=== PATIENT | male | born 1980 | race Caucasian/White ===

== ENCOUNTER 2017-08-23 09:08 | Inpatient (IN) | payer OTHER ==
[2017-08-23 09:42] VITALS: BMI 30.5
--- NOTE | 2017-08-23 09:48 | HP ---
CIWA Score - CIWA Score Nausea/Vomitin-Mild Nausea/No Vomiting Muscle Tremors: 4-Moderate,w/Arms Extend Anxiety: 4-Mod. Anxious/Guarded Agitation: 1-Slight > Activity Paroxysmal Sweats: No Perspiration Orientation: 0-Oriented Tacttile Disturbances: 1-Very Mild Itch/Numbness Auditory Disturbances: 1-Very Mild Visual Disturbances: 1-Very Mild Sensitivity Headache: 1-Very Mild CIWA-Ar Total Score: 14 Admission ROS BHS - HPI Chief Complaint: I need an operation, I want to get clean Allergies/Adverse Reactions: Allergies Allergy/AdvReac Type Severity Reaction Status Date / Time No Known Allergies Allergy Verified 08/23/17 10:38 History of Present Illness: 37 yo gentleman here for detox from alcohol - last in detox here 08/31/16 - no seizures. States he has chronic left knee pain due to past injury and needs surgery - was on percocet and opana but none for two months due to transportation problems. Exam Limitations: Clinical Condition - Ebola screening Have you traveled outside of the country in the last 21 days: No Have you had contact with anyone from an Ebola affected area: No Have you been sick,other than usual withdrawal symptoms: No Do you have a fever: No - Review of Systems Constitutional: Loss of Appetite, Changes in sleep, Weakness EENT: reports: Blurred Vision Respiratory: reports: No Symptoms reported Cardiac: reports: No Symptoms Reported GI: reports: Poor Appetite : reports: Frequency Musculoskeletal: reports: Joint Pain Integumentary: reports: No Symptoms Reported Neuro: reports: Headache Endocrine: reports: No Symptoms Reported Hematology: reports: No Symptoms Reported Psychiatric: reports: Judgement Intact, Mood/Affect Appropiate, Orientated x3, Anxious Other Systems: Reviewed and Negative Patient History - Patient Medical History Hx Anemia: No Hx Asthma: No Hx Chronic Obstructive Pulmonary Disease (COPD): No Hx Cancer: No Hx Cardiac Disorders: No Hx Congestive Heart Failure: No Hx Hypertension: Yes (poor adherence to meds) Hx Hypercholesterolemia: No Hx Pacemaker: No HX Cerebrovascular Accident: No Hx Seizures: No Hx Dementia: No Hx Diabetes: No Hx Gastrointestinal Disorders: No Hx Liver Disease: Yes (fatty liver) Hx Genitourinary Disorders: No Hx Sexually Transmitted Disorders: No Hx Renal Disease (ESRD): No Hx Thyroid Disease: No Hx Human Immunodeficiency Virus (HIV): No Hx Hepatitis C: No Hx Depression: Yes (history of meds,) Hx Suicide Attempt: No Hx Bipolar Disorder: No Hx Schizophrenia: No - Patient Surgical History Past Surgical History: Yes Hx Neurologic Surgery: No Hx Cataract Extraction: No Hx Cardiac Surgery: No Hx Lung Surgery: No Hx Breast Surgery: No Hx Breast Biopsy: No Hx Abdominal Surgery: No Hx Appendectomy: Yes (2012) Hx Cholecystectomy: Yes (2014) Hx Genitourinary Surgery: No Hx Section: No Hx Orthopedic Surgery: Yes (torn ligament repair LT. KNEE 2005) Anesthesia Reaction: No - PPD History Previous Implant?: Yes Documented Results: Negative w/proof Date: 09/03/16 PPD to be Administered?: No - Reproductive History Patient is a Female of Child Bearing Age (11 -55 yrs old): No (male) - Smoking Cessation Smoking history: Current every day smoker Have you smoked in the past 12 months: Yes Aproximately how many cigarettes per day: 20 Initiated information on smoking cessation: Yes 'Breaking Loose' booklet given: 08/23/17 (give on floor) - Substance & Tx. History Hx Alcohol Use: Yes Hx Substance Use: No Substance Use Type: Alcohol Hx Substance Use Treatment: Yes (detox, rehab) - Substances Abused Alcohol Route: Oral Frequency: Daily Amount used: two 24 oz beers; 1/2 pint Age of first use: 13 Date of Last Use: 08/23/17 Family Disease History - Family Disease History Family Disease History: Other: Father (, ALCOHOL), Mother (), Brother (three living - healthy), Sister (four living - healthy), Daughter (two - ages 18, 16) [facility] - Vital Signs Vital Signs: Vital Signs - 24 hr 08/23/17 09:40 Temperature 97.1 F L Pulse Rate 106 H Respiratory 20 Rate Blood Pressure 154/99 - Physical General Appearance: Yes: Nourished, Appropriately Dressed, Moderate Distress, Tremorous, Anxious HEENTM: Yes: EOMI, Hearing grossly Normal, Normocephalic, Normal Voice, Pharynx Normal Respiratory: Yes: Normal Breath Sounds, No Respiratory Distress Neck: Yes: No masses,lesions,Nodules, Supple Breast: Yes: Breast Exam Deferred Cardiology: Yes: Regular Rhythm, Regular Rate Abdominal: Yes: Soft Genitourinary: Yes: Frequency Back: Yes: Normal Inspection Musculoskeletal: Yes: Gait Steady, Joint Stiffness (left knee with hypertrophic changes) Extremities: Yes: Normal Inspection, Non-Tender Neurological: Yes: Fully Oriented, Alert, Normal Mood/Affect, Normal Response Integumentary: Yes: Normal Color, Warm Lymphatic: Yes: Within Normal Limits - Diagnostic (1) Alcohol dependence with uncomplicated withdrawal Current Visit: Yes Status: Chronic (2) Chronic pain of left knee Current Visit: Yes Status: Chronic (3) HTN (hypertension) Current Visit: Yes Status: Chronic Qualifiers: Hypertension type: essential hypertension Qualified Code(s): I10 - Essential (primary) hypertension Cleared for Admission [facility] - [facility]ox or [facility]hab [facility] Level of Care: Medically Managed Detox Regimen/Protocol: Librium [facility] Breath Alcohol Content Breath Alcohol Content: 0.191 Urine Drug Screen - Results Drug Screen Negative: No Urine Drug Screen Results: BZO-Benzodiazepines
[2017-08-23] MEDS ORDERED: MENTHOL/PHENOL 1 EACH UD MM PRN (10:03)
[2017-08-23] MEDS ORDERED: MAG HYDROX/AL HYDROX/SIMETH 30 ML UNIT-DOSE CUP PO PRN (10:03)
[2017-08-23] MEDS ORDERED: IBUPROFEN 400 MG TABLET (FP) PO PRN (10:03)
[2017-08-23] MEDS ORDERED: chlordiazePOXIDE HCL 25 MG CAPSULE PO PRN (10:03)
[2017-08-23] MEDS ORDERED: MAGNESIUM HYDROX 2400MG/30ML ORAL SUSPENSION 30 ML CUP PO PRN (10:03)
[2017-08-23] MEDS ORDERED: NICOTINE POLACRILEX 4 MG GUM BUC PRN (10:03)
[2017-08-23] MEDS ORDERED: LOPERAMIDE HCL 2 MG CAPSULE PO PRN (10:03)
[2017-08-23] MEDS ORDERED: ACETAMINOPHEN 325 MG TABLET (FP) PO PRN (10:03)
[2017-08-23] MEDS ORDERED: MAGNESIUM CITRATE 300 ML BOTTLE PO PRN (10:03)
[2017-08-23] MEDS ORDERED: guaiFENesin/D-METHORPHAN HB 10 ML UNIT-DOSE CUPS PO PRN (10:03)
[2017-08-23] MEDS ORDERED: diphenhydrAMINE HCL 50 MG CAPSULE PO PRN (10:03)
[2017-08-23] MEDS ORDERED: P-EPHED 60MG/TRIPROLIDI 2.5MG TABLET PO PRN (10:03)
[2017-08-23] MEDS ORDERED: hydrOXYzine PAMOATE 25 MG CAPSULE (FP) PO PRN (10:03)
[2017-08-23] MEDS ORDERED: chlordiazePOXIDE HCL 25 MG CAPSULE PO ONE (11:30)
[2017-08-23] MEDS: chlordiazePOXIDE HCL 25 MG CAPSULE PO SCH ×2 (17:26→22:26)
[2017-08-23] MEDS: THIAMINE HCL 100 MG TABLET (FP) PO SCH (22:26)
[2017-08-23] MEDS: METOPROLOL TARTRATE 25 MG TABLET (FP) PO SCH (22:26)
[2017-08-24] MEDS: chlordiazePOXIDE HCL 25 MG CAPSULE PO SCH ×4 (05:25→22:02)
[2017-08-24 07:35] LABS: URINE APPEARANCE CLEAR; URINE BILIRUBIN NEGATIVE (NEGATIVE); URINE BLOOD NEGATIVE (NEGATIVE); URINE COLOR AMBER; URINE GLUCOSE (UA) NEGATIVE (NEGATIVE); URINE KETONE NEGATIVE (NEGATIVE); URINE LEUK ESTERASE NEGATIVE (NEGATIVE); URINE NITRITE NEGATIVE (NEGATIVE); URINE PROTEIN NEGATIVE (NEGATIVE); URINE UROBILINOGEN 4.0 E.U/dl mg/dL (0.2-1.0)
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
--- NOTE | 2017-08-24 09:59 | EKG ---
Test Reason : Blood Pressure : / mmHG Vent. Rate : 092 BPM Atrial Rate : 092 BPM P-R Int : 164 ms QRS Dur : 112 ms QT Int : 400 ms P-R-T Axes : 055 011 022 degrees QTc Int : 494 ms NORMAL SINUS RHYTHM POSSIBLE INFERIOR INFARCT , AGE UNDETERMINED ABNORMAL ECG NO PREVIOUS ECGS AVAILABLE Confirmed by LOWELL COLLINS MD ([id number]) on 08/24/2017 9:59:28 AM Referred By: Confirmed By:LOWELL COLLINS MD
[2017-08-24 10:02] LABS: MCH 36.8 pg (25.7-33.7); MCHC 34.7 g/dl (32.0-35.9); MEAN CELL VOLUME 106.1 fl (80-96); MEAN PLT VOLUME 9.5 fl (7.5-11.1); PLATELET COUNT 72 K/MM3 (134-434); RDW 15.6 % (11.9-15.9); WHITE BLOOD COUNT 2.7 K/mm3 (4.0-10.0)
[2017-08-24] MEDS: METOPROLOL TARTRATE 25 MG TABLET (FP) PO SCH ×2 (10:11→22:02)
[2017-08-24] MEDS: PRENATAL VITAMINS W/ FOLIC ACID TABLET (FP) PO SCH (10:11)
[2017-08-24 10:37] LABS: ALBUMIN 2.5 g/dl (3.4-5.0); ALK PHOS 186 U/L (45-117); ANION GAP 5 (8-16); BILIRUBIN,TOTAL 5.2 mg/dL (0.2-1.0); CALCIUM 8.2 mg/dL (8.5-10.1); CO2 30 mmol/L (21-32); CREATININE 0.6 mg/dL (0.7-1.3); GLUCOSE,RANDOM 105 mg/dL (74-106); SGOT/AST 80 U/L (15-37); SGPT/ALT 39 U/L (12-78)
[2017-08-24 11:26] LABS: HIV 1 & 2 AB NEGATIVE; HIV 1 AGp24 NEGATIVE
[2017-08-24] MEDS ORDERED: POTASSIUM CHLORIDE TABS 20 MEQ TABLET.ER (FP) PO ONE ×2 (11:45→16:00)
[2017-08-24] MEDS ORDERED: FLU VACCINE QUAD 60 MCG/0.5 ML (MDV 17-18) IM ONE (12:00)
--- NOTE | 2017-08-24 15:38 | PN ---
S CIWA - CIWA Score Nausea/Vomitin-No Nausea/No Vomiting Muscle Tremors: 4-Moderate,w/Arms Extend Anxiety: 4-Mod. Anxious/Guarded Agitation: 4-Moderately Restless Paroxysmal Sweats: 3 Orientation: 0-Oriented Tacttile Disturbances: 1-Very Mild Itch/Numbness Auditory Disturbances: 0-None Visual Disturbances: 0-None Headache: 2-Mild CIWA-Ar Total Score: 18 S Progress Note (SOAP) Subjective: Sweating, chills, tremor, anxious, restless, tactile disturbance (tingling), interrupted sleep Objective: 08/24/17 15:33 Last Vital Signs Temp Pulse Resp BP Pulse Ox 96.2 F L 61 16 148/91 08/24/17 09:53 08/24/17 14:43 08/24/17 14:43 08/24/17 14:43 b/p elevated: 148/91 (on meds) Laboratory Tests 08/23/17 08/24/17 08/24/17 21:35 08:00 08:00 WBC 2.7 L D RBC 3.04 L D Hgb 11.2 L D Hct 32.2 L D MCV 106.1 H MCH 36.8 H MCHC 34.7 RDW 15.6 D Plt Count 72 L D MPV 9.5 Sodium 140 Potassium 2.8 L* Chloride 105 Carbon Dioxide 30 Anion Gap 5 L BUN 5 L D Creatinine 0.6 L Creat Clearance w eGFR > 60 Random Glucose 105 Calcium 8.2 L Total Bilirubin 5.2 H AST 80 H ALT 39 D Alkaline Phosphatase 186 H Total Protein 6.0 L D Albumin 2.5 L Urine Color Taty Urine Appearance Clear Urine pH 7.0 Ur Specific [place] 1.015 Urine Protein Negative Urine Glucose (UA) Negative Urine Ketones Negative Urine Blood Negative Urine Nitrite Negative Urine Bilirubin Negative Urine Urobilinogen 4.0 e.u/dl RPR Titer HIV 1&2 Antibody Screen HIV P24 Antigen 08/24/17 08/24/17 08:00 08:00 WBC RBC Hgb Hct MCV MCH MCHC RDW Plt Count MPV Sodium Potassium Chloride Carbon Dioxide Anion Gap BUN Creatinine Creat Clearance w eGFR Random Glucose Calcium Total Bilirubin AST ALT Alkaline Phosphatase Total Protein Albumin Urine Color Urine Appearance Urine pH Ur Specific [place] Urine Protein Urine Glucose (UA) Urine Ketones Urine Blood Urine Nitrite Urine Bilirubin Urine Urobilinogen RPR Titer Nonreactive HIV 1&2 Antibody Screen Negative HIV P24 Antigen Negative Labs noted: K 2.8; noted with pancytopenia Assessment: 08/24/17 15:34 Withdrawal symptoms Uncontrolled HTN noted Noted with Hypokalemia Noted with pancytopenia Plan: Continue detox, encouraged to drink lots of water HTN, uncontrolled: continue present regimen, low Na diet, continue to monitor Hypokalemia, acute: asymptomatic, start K Dur 40Meq x 2 doses (at least 4 hours apart) then 20meq PO daily starting tomorrow, repeat BMP in AM Pancytopenia: monitor for bruising/bleeding, encourage good hand washing with soap and water, follow up with your PCP/[facility] Delivery [facility]er post discharge for further monitoring/management
[2017-08-24] MEDS: THIAMINE HCL 100 MG TABLET (FP) PO SCH (22:02)
[2017-08-24] MEDS: ZOLPIDEM TARTRATE 5 MG TABLET PO PRN (22:03)
[2017-08-25] MEDS: chlordiazePOXIDE HCL 25 MG CAPSULE PO SCH ×2 (05:40→10:12)
[2017-08-25] MEDS ORDERED: POTASSIUM CHLORIDE TABS 20 MEQ TABLET.ER (FP) PO SCH (10:00)
[2017-08-25] MEDS: PRENATAL VITAMINS W/ FOLIC ACID TABLET (FP) PO SCH (10:12)
[2017-08-25] MEDS: METOPROLOL TARTRATE 25 MG TABLET (FP) PO SCH ×2 (10:12→22:06)
[2017-08-25 10:19] LABS: ANION GAP 4 (8-16); CALCIUM 8.4 mg/dL (8.5-10.1); CO2 28 mmol/L (21-32); CREATININE 0.6 mg/dL (0.7-1.3); GLUCOSE,RANDOM 100 mg/dL (74-106)
--- NOTE | 2017-08-25 10:58 | PN ---
S CIWA - CIWA Score Nausea/Vomitin Muscle Tremors: 4-Moderate,w/Arms Extend Anxiety: 4-Mod. Anxious/Guarded Agitation: 4-Moderately Restless Paroxysmal Sweats: 3 Orientation: 0-Oriented Tacttile Disturbances: 1-Very Mild Itch/Numbness Auditory Disturbances: 0-None Visual Disturbances: 0-None Headache: 1-Very Mild CIWA-Ar Total Score: 20 BHS Progress Note (SOAP) Subjective: [place], sweats, interrutped sleep, anxiety, tremors, weakness, fatigue Objective: 08/25/17 10:57 Vital Signs - 24 hr 08/24/17 08/24/17 08/24/17 14:43 17:26 21:57 Temperature 97.0 F L 96.6 F L Pulse Rate 61 68 89 Respiratory 16 18 18 Rate Blood Pressure 148/91 134/87 126/68 08/25/17 08/25/17 08/25/17 00:30 03:30 06:20 Temperature 97.0 F L Pulse Rate 69 Respiratory 18 20 18 Rate Blood Pressure 126/89 08/25/17 08:59 Temperature 95.6 F L Pulse Rate 72 Respiratory 18 Rate Blood Pressure 135/95 Laboratory Tests 08/23/17 08/24/17 08/24/17 21:35 08:00 08:00 WBC 2.7 L D RBC 3.04 L D Hgb 11.2 L D Hct 32.2 L D MCV 106.1 H MCH 36.8 H MCHC 34.7 RDW 15.6 D Plt Count 72 L D MPV 9.5 Sodium 140 Potassium 2.8 L* Chloride 105 Carbon Dioxide 30 Anion Gap 5 L BUN 5 L D Creatinine 0.6 L Creat Clearance w eGFR > 60 Random Glucose 105 Calcium 8.2 L Total Bilirubin 5.2 H AST 80 H ALT 39 D Alkaline Phosphatase 186 H Total Protein 6.0 L D Albumin 2.5 L Urine Color Taty Urine Appearance Clear Urine pH 7.0 Ur Specific [place] 1.015 Urine Protein Negative Urine Glucose (UA) Negative Urine Ketones Negative Urine Blood Negative Urine Nitrite Negative Urine Bilirubin Negative Urine Urobilinogen 4.0 e.u/dl RPR Titer HIV 1&2 Antibody Screen HIV P24 Antigen 08/24/17 08/24/17 08/25/17 08:00 08:00 07:30 WBC RBC Hgb Hct MCV MCH MCHC RDW Plt Count MPV Sodium 142 Potassium 3.7 D Chloride 110 H Carbon Dioxide 28 Anion Gap 4 L BUN 5 L Creatinine 0.6 L Creat Clearance w eGFR Random Glucose 100 Calcium 8.4 L Total Bilirubin AST ALT Alkaline Phosphatase Total Protein Albumin Urine Color Urine Appearance Urine pH Ur Specific [place] Urine Protein Urine Glucose (UA) Urine Ketones Urine Blood Urine Nitrite Urine Bilirubin Urine Urobilinogen RPR Titer Nonreactive HIV 1&2 Antibody Screen Negative HIV P24 Antigen Negative Assessment: 08/25/17 10:58 withdrawal sx, hypokalemai, corrected Plan: cont detox,cont k supplementation, fluids, encourage ambulation, symptomatic relief of withdrawal as ordered and requested by patient
[2017-08-25] MEDS: POTASSIUM CHLORIDE ORAL LIQUID 20 MEQ/15 ML PO SCH ×2 (11:58→22:05)
[2017-08-25] MEDS ORDERED: POTASSIUM CHLORIDE ORAL LIQUID 20 MEQ/15 ML PO ONE (13:00)
[2017-08-25] MEDS: chlordiazePOXIDE 5 MG CAPSULE PO SCH ×2 (17:29→22:06)
[2017-08-25] MEDS: ZOLPIDEM TARTRATE 5 MG TABLET PO PRN (22:06)
[2017-08-25] MEDS: THIAMINE HCL 100 MG TABLET (FP) PO SCH (22:06)
[2017-08-26] MEDS: chlordiazePOXIDE 5 MG CAPSULE PO SCH ×2 (05:45→10:14)
[2017-08-26] MEDS: PRENATAL VITAMINS W/ FOLIC ACID TABLET (FP) PO SCH (10:14)
[2017-08-26] MEDS: METOPROLOL TARTRATE 25 MG TABLET (FP) PO SCH ×2 (10:14→22:03)
[2017-08-26] MEDS: POTASSIUM CHLORIDE ORAL LIQUID 20 MEQ/15 ML PO SCH ×2 (10:15→22:02)
--- NOTE | 2017-08-26 11:42 | PN ---
BHS Progress Note (SOAP) Subjective: Anxious, Tremors, Body Aches. Objective: PT. A & O X 3, OBSERVED AMBULATING ON UNIT. NO ACUTE DISTRESS. PT. DENIES CHEST PAIN. 08/26/17 11:41 Vital Signs Temperature 97.3 F L 08/26/17 09:21 Pulse Rate 74 08/26/17 09:21 Respiratory Rate 18 08/26/17 09:21 Blood Pressure 131/80 08/26/17 09:21 O2 Sat by Pulse Oximetry (%) Laboratory Tests 08/23/17 08/24/17 08/24/17 21:35 08:00 08:00 WBC 2.7 L D RBC 3.04 L D Hgb 11.2 L D Hct 32.2 L D MCV 106.1 H MCH 36.8 H MCHC 34.7 RDW 15.6 D Plt Count 72 L D MPV 9.5 Sodium 140 Potassium 2.8 L* Chloride 105 Carbon Dioxide 30 Anion Gap 5 L BUN 5 L D Creatinine 0.6 L Creat Clearance w eGFR > 60 Random Glucose 105 Calcium 8.2 L Total Bilirubin 5.2 H AST 80 H ALT 39 D Alkaline Phosphatase 186 H Total Protein 6.0 L D Albumin 2.5 L Urine Color Taty Urine Appearance Clear Urine pH 7.0 Ur Specific [place] 1.015 Urine Protein Negative Urine Glucose (UA) Negative Urine Ketones Negative Urine Blood Negative Urine Nitrite Negative Urine Bilirubin Negative Urine Urobilinogen 4.0 e.u/dl RPR Titer HIV 1&2 Antibody Screen HIV P24 Antigen 08/24/17 08/24/17 08/25/17 08:00 08:00 07:30 WBC RBC Hgb Hct MCV MCH MCHC RDW Plt Count MPV Sodium 142 Potassium 3.7 D Chloride 110 H Carbon Dioxide 28 Anion Gap 4 L BUN 5 L Creatinine 0.6 L Creat Clearance w eGFR Random Glucose 100 Calcium 8.4 L Total Bilirubin AST ALT Alkaline Phosphatase Total Protein Albumin Urine Color Urine Appearance Urine pH Ur Specific [place] Urine Protein Urine Glucose (UA) Urine Ketones Urine Blood Urine Nitrite Urine Bilirubin Urine Urobilinogen RPR Titer Nonreactive HIV 1&2 Antibody Screen Negative HIV P24 Antigen Negative LABS NOTED. Assessment: 08/26/17 11:41 WITHDRAWAL SYMPTOMS. PANCYTOPENIA. Plan: CONTINUE DETOX. PRN FLEXERIL PO FOR BODY ACHES / MUSCLE SPASMS. INCREASE DAILY PO FLUID INTAKE.
[2017-08-26] MEDS: chlordiazePOXIDE HCL 10 MG CAPSULE PO SCH ×2 (17:21→22:02)
[2017-08-26] MEDS: CYCLOBENZAPRINE HCL 10 MG TABLET (FP) PO PRN (22:02)
[2017-08-26] MEDS: ZOLPIDEM TARTRATE 5 MG TABLET PO PRN (22:02)
[2017-08-26] MEDS: THIAMINE HCL 100 MG TABLET (FP) PO SCH (22:03)
[2017-08-27] MEDS: chlordiazePOXIDE HCL 10 MG CAPSULE PO SCH ×2 (06:00→10:03)
[2017-08-27] MEDS: CYCLOBENZAPRINE HCL 10 MG TABLET (FP) PO PRN (06:00)
[2017-08-27 06:35] VITALS: TEMP 97
[2017-08-27 09:41] VITALS: BP 120/73; PULSE 71
[2017-08-27] MEDS: METOPROLOL TARTRATE 25 MG TABLET (FP) PO SCH (10:03)
[2017-08-27] MEDS: PRENATAL VITAMINS W/ FOLIC ACID TABLET (FP) PO SCH (10:03)
[2017-08-27] MEDS: POTASSIUM CHLORIDE ORAL LIQUID 20 MEQ/15 ML PO SCH (10:03)
--- NOTE | 2017-08-27 13:44 | DS ---
[facility] Detox Discharge Summary Admission Date: 08/23/17 Discharge Date: 08/27/17 - History Present History: Alcohol Dependence Additional Comments: PATIENT ADVISED TO CONSIDER LOCAL 12-STEP / AA OUTPATIENT SUPPORT GROUP MEETINGS FOR AFTERCARE. PATIENT WAS DISCHARGED FROM DETOX UNIT IN STABLE MEDICAL CONDITION. Pertinent Past History: HTN, History of Fatty Liver, Depression, Chronic Left Knee Pain, Nicotine Dependence. - Physical Exam Results Vital Signs: Vital Signs Temperature 97.0 F L 08/27/17 09:40 Pulse Rate 71 08/27/17 09:40 Respiratory Rate 18 08/27/17 09:40 Blood Pressure 120/73 08/27/17 09:40 O2 Sat by Pulse Oximetry (%) Pertinent Admission Physical Exam Findings: WITHDRAWAL SYMPTOMS. Laboratory Tests 08/23/17 08/24/17 08/24/17 21:35 08:00 08:00 WBC 2.7 L D RBC 3.04 L D Hgb 11.2 L D Hct 32.2 L D MCV 106.1 H MCH 36.8 H MCHC 34.7 RDW 15.6 D Plt Count 72 L D MPV 9.5 Sodium 140 Potassium 2.8 L* Chloride 105 Carbon Dioxide 30 Anion Gap 5 L BUN 5 L D Creatinine 0.6 L Creat Clearance w eGFR > 60 Random Glucose 105 Calcium 8.2 L Total Bilirubin 5.2 H AST 80 H ALT 39 D Alkaline Phosphatase 186 H Total Protein 6.0 L D Albumin 2.5 L Urine Color Taty Urine Appearance Clear Urine pH 7.0 Ur Specific [place] 1.015 Urine Protein Negative Urine Glucose (UA) Negative Urine Ketones Negative Urine Blood Negative Urine Nitrite Negative Urine Bilirubin Negative Urine Urobilinogen 4.0 e.u/dl RPR Titer HIV 1&2 Antibody Screen HIV P24 Antigen 08/24/17 08/24/17 08/25/17 08:00 08:00 07:30 WBC RBC Hgb Hct MCV MCH MCHC RDW Plt Count MPV Sodium 142 Potassium 3.7 D Chloride 110 H Carbon Dioxide 28 Anion Gap 4 L BUN 5 L Creatinine 0.6 L Creat Clearance w eGFR Random Glucose 100 Calcium 8.4 L Total Bilirubin AST ALT Alkaline Phosphatase Total Protein Albumin Urine Color Urine Appearance Urine pH Ur Specific [place] Urine Protein Urine Glucose (UA) Urine Ketones Urine Blood Urine Nitrite Urine Bilirubin Urine Urobilinogen RPR Titer Nonreactive HIV 1&2 Antibody Screen Negative HIV P24 Antigen Negative LABS NOTED. - Treatment Hospital Course: Detox Protocol Followed, Detoxed Safely, Responded well, Discharged Condition Good Patient has Accepted a Rehab Referral to: NO .PT. ADVISED TO FOLLOW-UP WITH LOCAL 12-STEP/AA GROUPS FOR AFTERCARE. - Medication Discharge Medications: Ambulatory Orders NK [No Known Home Medication] 08/23/17 - Diagnosis (1) Alcohol-induced anxiety disorder Status: Acute (2) Alcohol-induced sleep disorder Status: Acute (3) Anxiety disorder Status: Acute Qualifiers: Anxiety disorder type: unspecified anxiety disorder Qualified Code(s ): F41.9 - Anxiety disorder, unspecified; F41.9 - Anxiety disorder, unspecified (4) Fatty liver, alcoholic Status: Chronic (5) Chronic pain of left knee Status: Chronic (6) Drug-induced mood disorder Status: Chronic (7) HTN (hypertension) Status: Chronic Qualifiers: Hypertension type: essential hypertension Qualified Code(s): I10 - Essential (primary) hypertension; I10 - Essential (primary) hypertension; I10 - Essential (primary) hypertension (8) Nicotine dependence Status: Chronic Qualifiers: Nicotine product type: cigarettes Substance use status: uncomplicated Qualified Code(s): F17.210 - Nicotine dependence, cigarettes, uncomplicated; F17.210 - Nicotine dependence, cigarettes, uncomplicated (9) Alcohol dependence with uncomplicated withdrawal Status: Acute - AMA Did Patient Leave Against Medical Advice: No
== END 2017-08-27 10:30 | disposition home or self-care (01) | DRG 775 ==
LOC: YASAS 09:08 → UNDOADMIN 10:55 → Y3N 10:55
PROVIDERS: ADMIT Internal Medicine; ATTEND Internal Medicine
PROC: HZ2ZZZZ Detoxification Services for Substance Abuse Treatment (ICD-10-PCS; principal; 2017-08-23)
DX: F10.230 Alcohol dependence with withdrawal, uncomplicated (principal); F10.280 Alcohol dependence with alcohol-induced anxiety disorder; F10.282 Alcohol dependence with alcohol-induced sleep disorder; F17.210 Nicotine dependence, cigarettes, uncomplicated; F41.9 Anxiety disorder, unspecified; F19.24 Other psychoactive substance dependence with psychoactive substance-induced mood disorder; K70.0 Alcoholic fatty liver; I10 Essential (primary) hypertension; M25.562 Pain in left knee; G89.29 Other chronic pain; D61.818 Other pancytopenia; E87.6 Hypokalemia; Z91.14 Patient's other noncompliance with medication regimen
CPT/HCPCS: 36415; 80048; 80053; 81003; 85027; 86593; 87389; 90688; 93005; 93010; G0008

== ENCOUNTER 2017-09-01 22:35 | Emergency (ER) | payer OTHER ==
[2017-09-01 22:51] VITALS: BP 138/89; PULSE 99; TEMP 98.7; BMI 28.8
[2017-09-01] MEDS ORDERED: ASPIRIN 81 MG CHEWABLE TABLETS PO ONE (23:18)
--- NOTE | 2017-09-01 23:19 | PDOC ---
History of Present Illness <Pati Cohen - Last Filed: 09/02/17 00:00> <Kathryn Whitehead Nichole - Last Filed: 09/03/17 02:32> - General Chief Complaint: Palpitations Stated Complaint: PALPITATIONS Time Seen by Provider: 09/01/17 22:59 - History of Present Illness Initial Comments: 09/01/17 23:40 The patient is a 37 year old male, disheveled, with a significant past medical history of hypertension, chronic left knee pain, who presents to the emergency department with intermittent palpitations, throat pain, and cough since his admission for alcohol detox on 08/23/17. The patient reports his heart is beating fast. He also reports a pain to his epigastric region which radiates up the middle of his chest. He denies pain down his upper extremities. He reports the chest discomfort occurs at night, but only sometimes. The patient reports pain to his throat but denies difficulty swallowing. The patient also reports a non-productive cough. He denies chest pain, shortness of breath, headache and dizziness. He denies fever, chills, nausea, vomit, diarrhea and constipation. He denies dysuria, frequency, urgency and hematuria. Allergies: NKDA Past surgical history: cholecystectomy, appendectomy, left knee repair Social history: homeless, unemployed, 1ppd tobacco smoker PCP - none (Pati Cohen) Past History <Pati Cohen - Last Filed: 09/02/17 00:00> - Past Medical History Anemia: No Asthma: No Cancer: No Cardiac Disorders: No CVA: No COPD: No CHF: No Dementia: No Diabetes: No GI Disorders: No Disorders: No HTN: Yes (poor adherence to meds) Hypercholesterolemia: No Kidney Stones: No Liver Disease: Yes (fatty liver) Seizures: No Thyroid Disease: No - Surgical History Abdominal Surgery: No Appendectomy: Yes (2012) Cardiac Surgery: No Cholecystectomy: Yes (2014) Lung Surgery: No Neurologic Surgery: No Orthopedic Surgery: Yes (torn ligament repair LT. KNEE 2005) - Reproductive History Testicular Surgery: No - Immunization History Immunization Up to Date: No - Suicide/Smoking/Psychosocial Hx Smoking Status: No Smoking History: Never smoked Have you smoked in the past 12 months: Yes Number of Cigarettes Smoked Daily: 10 Information on smoking cessation initiated: No 'Breaking Loose' booklet given: 08/23/17 Hx Alcohol Use: Yes Drug/Substance Use Hx: No Substance Use Type: Alcohol Hx Substance Use Treatment: Yes (detox, rehab) <Kathryn Whitehead - Last Filed: 09/03/17 02:32> - Past Medical History Allergies/Adverse Reactions: Allergies Allergy/AdvReac Type Severity Reaction Status Date / Time No Known Allergies Allergy Verified 09/01/17 22:43 Home Medications: Ambulatory Orders NK [No Known Home Medication] 08/23/17 Cardiac Specific PMH - Complaint Specific PMHX Pacemaker: No <Kathryn Whitehead - Last Filed: 09/03/17 02:32> Review of Systems - Review of Systems Able to Perform ROS?: Yes <Pati Cohen - Last Filed: 09/02/17 00:00> <Kathryn Whitehead - Last Filed: 09/03/17 02:32> - Review of Systems Comments:: 09/01/17 23:40 CONSTITUTIONAL: Absent: fever, chills, diaphoresis, generalized weakness, malaise, loss of appetite HEENT: Absent: rhinorrhea, nasal congestion, throat pain, throat swelling, difficulty swallowing, mouth swelling, ear pain, eye pain, visual Changes CARDIOVASCULAR: (+) palpitations, Absent: chest pain, syncope, irregular heart rate, lightheadedness, peripheral edema RESPIRATORY: (+) cough, Absent: shortness of breath, dyspnea with exertion, orthopnea, wheezing, stridor, hemoptysis GASTROINTESTINAL: (+) epigastric pain radiating up the middle of his chest. Absent: abdominal pain, abdominal distension, nausea, vomiting, diarrhea, constipation, melena, hematochezia GENITOURINARY: Absent: dysuria, frequency, urgency, hesitancy, hematuria, flank pain, genital pain MUSCULOSKELETAL: Absent: myalgia, arthralgia, joint swelling SKIN: Absent: rash, itching, pallor HEMATOLOGIC/IMMUNOLOGIC: Absent: easy bleeding, easy bruising, lymphadenopathy, frequent infections ENDOCRINE: Absent: unexplained weight gain, unexplained weight loss, heat intolerance, cold intolerance NEUROLOGIC: Absent: headache, focal weakness or paresthesias, dizziness, unsteady gait, seizure, mental status changes, bladder or bowel incontinence PSYCHIATRIC: Absent: anxiety, depression, suicidal or homicidal ideation, hallucinations. (Pati Cohen) *Physical Exam <Pati Cohen - Last Filed: 09/02/17 00:00> <Kathryn Whitehead - Last Filed: 09/03/17 02:32> - Vital Signs Last Vital Signs Temp Pulse Resp BP Pulse Ox 98.7 F 99 H 22 138/89 96 09/01/17 22:39 09/01/17 22:39 09/01/17 22:39 09/01/17 22:39 09/01/17 22:39 - Physical Exam Comments: 09/01/17 23:41 GENERAL: (+) slightly disheveled, Well developed, well nourished. Awake and alert. No acute distress. HEENT: (+) ichteric sclera, Normocephalic, atraumatic. PERRLA, EOMI. No conjunctival pallor. Sclera are non-icteric. Moist mucous membranes. Oropharynx is clear. NECK: Supple. Full ROM. No JVD. Carotid pulses 2+ and symmetric, without bruits. No thyromegaly. No lymphadenopathy. CARDIOVASCULAR: (+) tachycardic, Regular rhythm. No murmurs, rubs, or gallops. Distal pulses are 2+ and symmetric. PULMONARY: No evidence of respiratory distress. Lungs clear to auscultation bilaterally. No wheezing, rales or rhonchi. ABDOMINAL: Soft. Non-tender. Non-distended. No rebound or guarding. No organomegaly. Normoactive bowel sounds. MUSCULOSKELETAL Normal range of motion at all joints. No bony deformities or tenderness. No CVA tenderness. EXTREMITIES: chronic left knee swelling. No cyanosis. No clubbing. No edema. No calf tenderness. SKIN: (+) slightly jaundice, Warm and dry. Normal capillary refill. No rashes. No jaundice. NEUROLOGICAL: Alert, awake, appropriate. Cranial nerves 2-12 intact. Normoreflexic in the upper and lower extremities. Normal speech. Toes are down-going bilaterally. Gait is normal without ataxia. PSYCHIATRIC: Cooperative. Good eye contact. Appropriate mood and affect. (Pati Cohen) ED Treatment Course - LABORATORY CBC & Chemistry Diagram: 09/01/17 23:40 09/01/17 23:40 <Kathryn Whitehead - Last Filed: 09/03/17 02:32> - ADDITIONAL ORDERS Additional order review: 09/01/17 23:40 RBC 2.93 L MCV 108.7 H MCHC 33.9 RDW 14.9 MPV 9.8 Neutrophils % 47.2 Lymphocytes % 35.0 Monocytes % 12.4 H Eosinophils % 4.6 H Basophils % 0.8 - RADIOLOGY Radiology Studies Ordered: Category Date Time Status CHEST X-RAY PORTABLE* [RAD] Stat Radiology 09/01/17 23:19 Completed - Medications Given in the ED: ED Medications Discontinued Medications Generic Name Dose Route Start Last Admin Trade Name Adalberto PRN Reason Stop Dose Admin Aspirin 162 mg 09/01/17 23:18 09/02/17 00:00 Asa - PO 09/01/17 23:19 162 mg ONCE ONE Administration Magnesium Sulfate 1 gm 09/02/17 00:55 09/02/17 02:24 Magnesium Sulfate IVPB 09/02/17 00:56 1 gm ONCE ONE Administration Potassium Chloride 40 meq 09/02/17 00:55 09/02/17 02:24 K-Dur - PO 09/02/17 00:56 40 meq ONCE ONE Administration Medical Decision Making <Pati Cohen - Last Filed: 09/02/17 00:00> <Kathryn Whitehead - Last Filed: 09/03/17 02:32> - Medical Decision Making 09/02/17 01:42 37 yo male with long history of alcoholism (discharged from detox Aug 27) presents with atypical chest pain -ekg is sinus tachycardia @ 101, old inferior infarct. No change when compared to his 08/23/17 ekg pt has been drinking and etoh =198 (Kathryn Whitehead) *DC/Admit/Observation/Transfer <Pati Cohen - Last Filed: 09/02/17 00:00> <Kathryn Whitehead - Last Filed: 09/03/17 02:32> Diagnosis at time of Disposition: Palpitations - Discharge Dispostion Disposition: HOME Condition at time of disposition: Stable - Patient Instructions Printed Discharge Instructions: DI for Palpitations Additional Instructions: Negative for coming into emergency department today. Please review your results. Please follow up with your primary care physician. Return to the emergency department for any other concerns or complaints - Attestations Scribe Attestion: 09/01/17 23:50 Documentation prepared by Pati Cohen, acting as medical diagnostic radiographer for [place], Kathryn Varela MD (Vicki,Pati)
[2017-09-01] MEDS ORDERED: ASPIRIN 81 MG CHEWABLE TABLETS ONE (23:43)
[2017-09-02 00:09] LABS: BASOPHIL 0.8 % (0-2.0); EOSINOPHIL 4.6 % (0-4.5); MCH 36.9 pg (25.7-33.7); MCHC 33.9 g/dl (32.0-35.9); MEAN CELL VOLUME 108.7 fl (80-96); NEUTROPHILS 47.2 % (42.8-82.8); RDW 14.9 % (11.9-15.9); WHITE BLOOD COUNT 3.1 K/mm3 (4.0-10.0)
[2017-09-02 00:13] LABS: URINE MARIJUANA THC NEGATIVE ng/ml (CUTOFF=50)
[2017-09-02 00:36] LABS: ALBUMIN 2.7 g/dl (3.4-5.0); ALK PHOS 173 U/L (45-117); ANION GAP 10 (8-16); BILIRUBIN,TOTAL 3.9 mg/dL (0.2-1.0); CALCIUM 8.2 mg/dL (8.5-10.1); CHOLESTEROL 216 mg/dL (50-200); CO2 26 mmol/L (21-32); CPK 283 IU/L (39-308); CREATININE 0.8 mg/dL (0.7-1.3); GLUCOSE,RANDOM 124 mg/dL (74-106); MAGNESIUM 1.8 mg/dL (1.8-2.4); SGOT/AST 68 U/L (15-37); SGPT/ALT 33 U/L (12-78); TOT PROT 6.5 g/dl (6.4-8.2); TROPONIN I < 0.02 ng/ml (0.00-0.05)
[2017-09-02] MEDS ORDERED: POTASSIUM CHLORIDE TABS 20 MEQ TABLET.ER (FP) PO ONE ×2 (00:55→02:02)
[2017-09-02] MEDS ORDERED: MAGNESIUM SULF 50% (8.12 MEQ/2 ML-1 GM VIAL) IVPB ONE (00:55)
[2017-09-02 01:16] LABS: INR 1.86 (0.82-1.09); PROTHROMBIN TIME (PATIENT) 20.5 SEC (9.98-11.88)
[2017-09-02] MEDS ORDERED: MAGNESIUM SULF 50% (8.12 MEQ/2 ML-1 GM VIAL) ONE (02:02)
[2017-09-02 02:23] LABS: ANISOCYTOSIS 2+; MACROCYTOSIS 2+; MEAN PLT VOLUME 9.8 fl (7.5-11.1); PLATELET COMMENT2 NO CLOTTING DETECTED; PLATELET COUNT 81 K/MM3 (134-434)
--- NOTE | 2017-09-02 02:42 | PDOC ---
*Physical Exam - Vital Signs Last Vital Signs Temp Pulse Resp BP Pulse Ox 98.7 F 99 H 22 138/89 96 09/01/17 22:39 09/01/17 22:39 09/01/17 22:39 09/01/17 22:39 09/01/17 22:39 - Physical Exam Comments: 09/02/17 02:42 Gen: aaox3, nad heart: +s1s2 reg Lungs: cta b/l abd: soft, nt/nd +bs ext: no c/c/e ED Treatment Course - LABORATORY CBC & Chemistry Diagram: 09/01/17 23:40 09/01/17 23:40 - ADDITIONAL ORDERS Additional order review: Laboratory Results 09/01/17 09/01/17 09/01/17 23:40 23:40 23:40 PT with INR 20.50 H INR 1.86 H Sodium 145 Potassium 3.3 L Chloride 109 H Carbon Dioxide 26 Anion Gap 10 BUN 5 L Creatinine 0.8 D Creat Clearance w eGFR > 60 Random Glucose 124 H D Calcium 8.2 L Magnesium 1.8 Total Bilirubin 3.9 H D AST 68 H ALT 33 Alkaline Phosphatase 173 H Creatine Kinase 283 Creatine Kinase Index 1.5 CK-MB (CK-2) 4.284 H Troponin I < 0.02 Total Protein 6.5 Albumin 2.7 L Triglycerides 122 Cholesterol 216 H Total LDL Cholesterol 87 HDL Cholesterol 58 Opiates Screen Methadone Screen Barbiturate Screen Phencyclidine Screen Ur Amphetamines Screen MDMA (Ecstasy) Screen Benzodiazepines Screen Cocaine Screen U Marijuana (THC) Screen Alcohol, Quantitative 198.9 H* 09/01/17 23:30 PT with INR INR Sodium Potassium Chloride Carbon Dioxide Anion Gap BUN Creatinine Creat Clearance w eGFR Random Glucose Calcium Magnesium Total Bilirubin AST ALT Alkaline Phosphatase Creatine Kinase Creatine Kinase Index CK-MB (CK-2) Troponin I Total Protein Albumin Triglycerides Cholesterol Total LDL Cholesterol HDL Cholesterol Opiates Screen Negative Methadone Screen Negative Barbiturate Screen Negative Phencyclidine Screen Negative Ur Amphetamines Screen Negative MDMA (Ecstasy) Screen Negative Benzodiazepines Screen Positive Cocaine Screen Negative U Marijuana (THC) Screen Negative Alcohol, Quantitative 09/01/17 23:40 RBC 2.93 L MCV 108.7 H MCHC 33.9 RDW 14.9 MPV 9.8 Neutrophils % 47.2 Lymphocytes % 35.0 Monocytes % 12.4 H Eosinophils % 4.6 H Basophils % 0.8 - Medications Given in the ED: ED Medications Discontinued Medications Generic Name Dose Route Start Last Admin Trade Name Adalberto PRN Reason Stop Dose Admin Aspirin 162 mg 09/01/17 23:18 09/02/17 00:00 Asa - PO 09/01/17 23:19 162 mg ONCE ONE Administration Magnesium Sulfate 1 gm 09/02/17 00:55 09/02/17 02:24 Magnesium Sulfate IVPB 09/02/17 00:56 1 gm ONCE ONE Administration Potassium Chloride 40 meq 09/02/17 00:55 09/02/17 02:24 K-Dur - PO 09/02/17 00:56 40 meq ONCE ONE Administration Medical Decision Making - Medical Decision Making 09/02/17 02:43 pt signed out pending repeat troponin. Pt denies cp at this time. tolerating po intake in the ED. states he is interested in going to detox. *DC/Admit/Observation/Transfer Diagnosis at time of Disposition: Palpitations - Discharge Dispostion Disposition: HOME Condition at time of disposition: Stable - Patient Instructions Printed Discharge Instructions: DI for Palpitations Additional Instructions: Negative for coming into emergency department today. Please review your results. Please follow up with your primary care physician. Return to the emergency department for any other concerns or complaints - Attestations Physician Attestion: 09/05/17 09:09 I, Dr. Arlette Mcgee, DO, attest that this document has been prepared under my direction and personally reviewed by me in its entirety. I further attest, that it accurately reflects all work, treatment, procedures and medical decision -making performed by me.
[2017-09-02 07:43] LABS: CPK 224 IU/L (39-308); TROPONIN I < 0.02 ng/ml (0.00-0.05)
--- NOTE | 2017-09-02 07:54 | PDOC ---
*Physical Exam - Vital Signs Last Vital Signs Temp Pulse Resp BP Pulse Ox 98.7 F 99 H 22 138/89 96 09/01/17 22:39 09/01/17 22:39 09/01/17 22:39 09/01/17 22:39 09/01/17 22:39 ED Treatment Course - LABORATORY CBC & Chemistry Diagram: 09/01/17 23:40 09/01/17 23:40 - ADDITIONAL ORDERS Additional order review: Laboratory Results 09/02/17 09/01/17 09/01/17 06:40 23:40 23:40 PT with INR INR Sodium 145 Potassium 3.3 L Chloride 109 H Carbon Dioxide 26 Anion Gap 10 BUN 5 L Creatinine 0.8 D Creat Clearance w eGFR > 60 Random Glucose 124 H D Calcium 8.2 L Magnesium 1.8 Total Bilirubin 3.9 H D AST 68 H ALT 33 Alkaline Phosphatase 173 H Creatine Kinase 224 283 Creatine Kinase Index 1.5 CK-MB (CK-2) 4.284 H Troponin I < 0.02 < 0.02 Total Protein 6.5 Albumin 2.7 L Triglycerides 122 Cholesterol 216 H Total LDL Cholesterol 87 HDL Cholesterol 58 Opiates Screen Methadone Screen Barbiturate Screen Phencyclidine Screen Ur Amphetamines Screen MDMA (Ecstasy) Screen Benzodiazepines Screen Cocaine Screen U Marijuana (THC) Screen Alcohol, Quantitative 198.9 H* 09/01/17 09/01/17 23:40 23:30 PT with INR 20.50 H INR 1.86 H Sodium Potassium Chloride Carbon Dioxide Anion Gap BUN Creatinine Creat Clearance w eGFR Random Glucose Calcium Magnesium Total Bilirubin AST ALT Alkaline Phosphatase Creatine Kinase Creatine Kinase Index CK-MB (CK-2) Troponin I Total Protein Albumin Triglycerides Cholesterol Total LDL Cholesterol HDL Cholesterol Opiates Screen Negative Methadone Screen Negative Barbiturate Screen Negative Phencyclidine Screen Negative Ur Amphetamines Screen Negative MDMA (Ecstasy) Screen Negative Benzodiazepines Screen Positive Cocaine Screen Negative U Marijuana (THC) Screen Negative Alcohol, Quantitative 09/01/17 23:40 RBC 2.93 L MCV 108.7 H MCHC 33.9 RDW 14.9 MPV 9.8 Neutrophils % 47.2 Lymphocytes % 35.0 Monocytes % 12.4 H Eosinophils % 4.6 H Basophils % 0.8 - Medications Given in the ED: ED Medications Discontinued Medications Generic Name Dose Route Start Last Admin Trade Name Freq PRN Reason Stop Dose Admin Aspirin 162 mg 09/01/17 23:18 09/02/17 00:00 Asa - PO 09/01/17 23:19 162 mg ONCE ONE Administration Magnesium Sulfate 1 gm 09/02/17 00:55 09/02/17 02:24 Magnesium Sulfate IVPB 09/02/17 00:56 1 gm ONCE ONE Administration Potassium Chloride 40 meq 09/02/17 00:55 09/02/17 02:24 K-Dur - PO 09/02/17 00:56 40 meq ONCE ONE Administration Medical Decision Making - Medical Decision Making 09/02/17 07:53 I received this patient on signed out. Briefly he is a 37-year-old male who was awaiting a repeat troponin prior to transportation to [facility] for detox He presented last night for palpitations, throat pain, and cough, epigastric pain which radiates up the middle of his chest. Pt was awaiting repeat troponin Laboratory Tests 09/01/17 09/02/17 23:40 06:40 Creatine Kinase 283 224 Troponin I < 0.02 < 0.02 Will discharge to [facility] 09/02/17 07:54 *DC/Admit/Observation/Transfer Diagnosis at time of Disposition: Palpitations - Discharge Dispostion Disposition: HOME Condition at time of disposition: Stable Admit: No - Patient Instructions Printed Discharge Instructions: DI for Palpitations Additional Instructions: Negative for coming into emergency department today. Please review your results. Please follow up with your primary care physician. Return to the emergency department for any other concerns or complaints
--- NOTE | 2017-09-12 10:24 | EKG ---
Test Reason : Blood Pressure : / mmHG Vent. Rate : 101 BPM Atrial Rate : 101 BPM P-R Int : 160 ms QRS Dur : 098 ms QT Int : 378 ms P-R-T Axes : 044 -06 025 degrees QTc Int : 490 ms SINUS TACHYCARDIA POSSIBLE LEFT ATRIAL ENLARGEMENT RSR' IN V1 ABNORMAL ECG WHEN COMPARED WITH ECG OF 23-AUG-2017 13:11, NO SIGNIFICANT CHANGE WAS FOUND REPEAT EKG IF CLINICALLY INDICATED Confirmed by BALBIR CHAVEZ MD ([id number]) on 09/02/2017 10:15:51 PM Also confirmed by BALBIR CHAVEZ MD ([id number]), offline editor RICHAR CANCHOLA ([id number]) on 09/12/2017 10:23:56 AM Referred By: Confirmed By:BALBIR CHAVEZ MD
== END 2017-09-02 09:17 | disposition home or self-care (01) ==
LOC: SUPCPDRO 22:35 → JER 22:35
PROC: 3E033GC Introduction of Other Therapeutic Substance into Peripheral Vein, Percutaneous Approach (ICD-10-PCS; principal; 2017-09-01)
DX: R00.2 Palpitations (principal); I10 Essential (primary) hypertension; G89.29 Other chronic pain
CPT/HCPCS: 36415; 71010-TC; 80053; 80061; 80307; 82550; 82553; 83721; 83735; 84484; 85025; 85610; 93005; 93010; 99284-25

== ENCOUNTER 2017-09-04 21:26 | Inpatient (IN) | payer OTHER ==
[2017-09-04 21:49] VITALS: BMI 28.6
--- NOTE | 2017-09-04 21:53 | HP ---
[facility] Re[facility] Assess/Revision - Admission History Date of Admission to Rehab: 09/04/2017 - Vital signs Vital Signs: Vital Signs Period Temp Pulse Resp BP Sys/Ruth Pulse Ox Last 24 Hr 97 F 68 20 148/87 - Findings Detox History & Physical reviewed: Yes Concur with findings: Yes Comments/Additional Findings: DC FROM DETOX 08/27/17 . DRANK EARLY THIS MORNING FOR FIRST TIME AFTER DETOX
[2017-09-04] MEDS ORDERED: NICOTINE POLACRILEX 2 MG GUM BUC PRN (21:55)
[2017-09-04] MEDS ORDERED: MENTHOL/PHENOL 1 EACH UD MM PRN (21:55)
[2017-09-04] MEDS ORDERED: IBUPROFEN 400 MG TABLET (FP) PO PRN (21:55)
[2017-09-04] MEDS ORDERED: MAGNESIUM CITRATE 300 ML BOTTLE PO PRN (21:55)
[2017-09-04] MEDS ORDERED: diphenhydrAMINE HCL 50 MG CAPSULE PO PRN (21:55)
[2017-09-04] MEDS ORDERED: MAGNESIUM HYDROX 2400MG/30ML ORAL SUSPENSION 30 ML CUP PO PRN (21:55)
[2017-09-04] MEDS ORDERED: LOPERAMIDE HCL 2 MG CAPSULE PO PRN (21:55)
[2017-09-04] MEDS ORDERED: MAG HYDROX/AL HYDROX/SIMETH 30 ML UNIT-DOSE CUP PO PRN (21:55)
[2017-09-04] MEDS ORDERED: ACETAMINOPHEN 325 MG TABLET (FP) PO PRN (21:55)
[2017-09-05] MEDS: guaiFENesin/D-METHORPHAN HB 10 ML UNIT-DOSE CUPS PO PRN (00:37)
[2017-09-05] MEDS: THIAMINE HCL 100 MG TABLET (FP) PO SCH ×2 (00:40→21:20)
[2017-09-05] MEDS ORDERED: TUBERCULIN PPD 5 TU/0.1ML VIAL ID ONE (00:45)
[2017-09-05 01:47] LABS: URINE APPEARANCE CLEAR; URINE BILIRUBIN NEGATIVE (NEGATIVE); URINE BLOOD NEGATIVE (NEGATIVE); URINE COLOR LTYELLOW; URINE GLUCOSE (UA) NEGATIVE (NEGATIVE); URINE KETONE NEGATIVE (NEGATIVE); URINE NITRITE NEGATIVE (NEGATIVE); URINE PROTEIN NEGATIVE (NEGATIVE); URINE UROBILINOGEN NEGATIVE mg/dL (0.2-1.0)
[2017-09-05] MEDS ORDERED: cloNIDine HCL 0.1 MG TABLET PO ONE (07:17)
[2017-09-05] MEDS: hydrOXYzine PAMOATE 50 MG CAPSULE (FP) PO PRN ×3 (07:18→18:26)
[2017-09-05 08:58] LABS: URINE LEUK ESTERASE Negative (NEGATIVE)
[2017-09-05] MEDS: NICOTINE 14 MG/24 HOURS TOPICAL PATCH TD SCH (10:07)
[2017-09-05] MEDS: PRENATAL VITAMINS W/ FOLIC ACID TABLET (FP) PO SCH (10:07)
--- NOTE | 2017-09-05 10:15 | HP ---
Psychiatrist Admission - Data Date of interview: 09/05/17 Identifying data: This is the first 5N inpatient rehabilitation admission for the 37 years old male, he is , father of 2 daughters, unemployed with no source of income and currently homeless. Medical History: Significant for HTN and history of surgery for removal of appendix, gallbladder and repair of ligament right knee. Smokes cigarettes 1/2 ppd. Psychiatric History: Patient denies history of psychiatric treatment, but reports has been feeling very anxious, having panic attacks with SOB, unable to sleep at nights and willing to start treatment here. Vital Signs: Vital Signs - 24 hr 09/04/17 09/05/17 09/05/17 21:47 03:30 07:33 Temperature 97 F L 98.1 F Pulse Rate 68 76 Respiratory 20 16 18 Rate Blood Pressure 148/87 152/92 Allergies/Adverse Reactions: Allergies Allergy/AdvReac Type Severity Reaction Status Date / Time No Known Allergies Allergy Verified 09/01/17 22:43 Date of last physical exam: 09/01/17 Concur with the findings of this exam: Yes - Substance Abuse/Tx History Hx Alcohol Use: Yes (started drinking at age of 13) Substance Use Type: Alcohol (1/2 pint of liquor, 2x24 oz of beer daily) Hx Substance Use Treatment: Yes Mental Status Exam - Mental Status Exam Alert and Oriented to: Time, Place, Person Cognitive Function: Good Patient Appearance: Well Groomed Mood: Sad, Anxious Patient Behavior: Appropriate, Cooperative Speech Pattern: Clear, Appropriate Voice Loudness: Normal Thought Process: Intact, Goal Oriented Thought Disorder: Not Present Hallucinations: Denies Suicidal Ideation: Denies Homicidal Ideation: Denies Insight/Judgement: Fair Sleep: Fair Appetite: Fair Muscle strength/Tone: Normal Gait/Station: Normal Psychiatric Findings - Problem List ([place] 1, 2,3) (1) Alcohol-induced anxiety disorder Current Visit: No Status: Acute (2) Alcohol-induced sleep disorder Current Visit: No Status: Acute (3) Nicotine dependence Current Visit: No Status: Chronic Qualifiers: (4) Alcohol dependence Current Visit: Yes Status: Acute - Initial Treatment Plan Initial Treatment Plan: Discussed indications and properties of buspar for anxiety and belsomra for insomnia, patient agreed to start medications, will consider Campral for next week, monitor progress as neeed.
[2017-09-05] MEDS: cloNIDine HCL 0.1 MG TABLET PO SCH ×2 (13:33→21:20)
[2017-09-05] MEDS: GABAPENTIN 100 MG CAPSULE (FP) PO SCH ×2 (13:33→21:20)
[2017-09-05 15:14] LABS: ALBUMIN 2.7 g/dl (3.4-5.0); ALK PHOS 177 U/L (45-117); ANION GAP 7 (8-16); BILIRUBIN,TOTAL 4.2 mg/dL (0.2-1.0); CALCIUM 8.4 mg/dL (8.5-10.1); CO2 31 mmol/L (21-32); CREATININE 0.5 mg/dL (0.7-1.3); GLUCOSE,RANDOM 97 mg/dL (74-106); SGOT/AST 72 U/L (15-37); SGPT/ALT 36 U/L (12-78); TOT PROT 6.7 g/dl (6.4-8.2)
[2017-09-05] MEDS: SUVOREXANT 10 MG TABLET PO SCH (21:20)
[2017-09-05] MEDS: busPIRone HCL 10 MG TABLET (FP) PO SCH (21:20)
[2017-09-06] MEDS: GABAPENTIN 100 MG CAPSULE (FP) PO SCH ×3 (06:29→21:14)
[2017-09-06] MEDS: cloNIDine HCL 0.1 MG TABLET PO SCH ×2 (09:03→21:14)
[2017-09-06] MEDS: hydrOXYzine PAMOATE 50 MG CAPSULE (FP) PO PRN ×3 (09:03→22:28)
[2017-09-06] MEDS: busPIRone HCL 10 MG TABLET (FP) PO SCH ×2 (09:03→21:14)
[2017-09-06] MEDS: PRENATAL VITAMINS W/ FOLIC ACID TABLET (FP) PO SCH (09:03)
[2017-09-06] MEDS: guaiFENesin/D-METHORPHAN HB 10 ML UNIT-DOSE CUPS PO PRN ×2 (09:05→18:00)
[2017-09-06] MEDS: P-EPHED 60MG/TRIPROLIDI 2.5MG TABLET PO PRN ×2 (09:05→18:00)
[2017-09-06] MEDS: NICOTINE 14 MG/24 HOURS TOPICAL PATCH TD SCH (10:31)
--- NOTE | 2017-09-06 12:55 | EKG ---
Test Reason : Blood Pressure : / mmHG Vent. Rate : 071 BPM Atrial Rate : 071 BPM P-R Int : 168 ms QRS Dur : 108 ms QT Int : 442 ms P-R-T Axes : 057 -04 036 degrees QTc Int : 480 ms NORMAL SINUS RHYTHM PROLONGED QT POOR R WAVE PROGRESSION ABNORMAL ECG WHEN COMPARED WITH ECG OF 01-SEP-2017 22:52, NO SIGNIFICANT CHANGE WAS FOUND Confirmed by LOWELL COLLINS MD ([id number]) on 09/06/2017 12:55:17 PM Referred By: Confirmed By:LOWELL COLLINS MD
[2017-09-06] MEDS: SUVOREXANT 10 MG TABLET PO SCH (21:14)
[2017-09-06] MEDS: THIAMINE HCL 100 MG TABLET (FP) PO SCH (21:14)
[2017-09-07] MEDS: hydrOXYzine PAMOATE 50 MG CAPSULE (FP) PO PRN ×3 (06:37→21:14)
[2017-09-07] MEDS: GABAPENTIN 100 MG CAPSULE (FP) PO SCH ×3 (06:37→21:14)
[2017-09-07] MEDS: cloNIDine HCL 0.1 MG TABLET PO SCH ×2 (10:14→21:14)
[2017-09-07] MEDS: busPIRone HCL 10 MG TABLET (FP) PO SCH ×2 (10:14→21:14)
[2017-09-07] MEDS: PRENATAL VITAMINS W/ FOLIC ACID TABLET (FP) PO SCH (10:14)
[2017-09-07] MEDS: NICOTINE 14 MG/24 HOURS TOPICAL PATCH TD SCH (10:14)
[2017-09-07] MEDS: THIAMINE HCL 100 MG TABLET (FP) PO SCH (21:14)
[2017-09-07] MEDS: SUVOREXANT 10 MG TABLET PO SCH (21:14)
[2017-09-07] MEDS: guaiFENesin/D-METHORPHAN HB 10 ML UNIT-DOSE CUPS PO PRN (21:15)
[2017-09-08] MEDS: GABAPENTIN 100 MG CAPSULE (FP) PO SCH ×3 (06:07→21:23)
[2017-09-08] MEDS: busPIRone HCL 10 MG TABLET (FP) PO SCH ×2 (09:58→21:23)
[2017-09-08] MEDS: PRENATAL VITAMINS W/ FOLIC ACID TABLET (FP) PO SCH (09:58)
[2017-09-08] MEDS: NICOTINE 14 MG/24 HOURS TOPICAL PATCH TD SCH (09:58)
[2017-09-08] MEDS: cloNIDine HCL 0.1 MG TABLET PO SCH (09:59)
[2017-09-08] MEDS: hydrOXYzine PAMOATE 50 MG CAPSULE (FP) PO PRN (10:01)
[2017-09-08] MEDS: SUVOREXANT 10 MG TABLET PO SCH (21:23)
[2017-09-08] MEDS: THIAMINE HCL 100 MG TABLET (FP) PO SCH (21:23)
[2017-09-08] MEDS: guaiFENesin/D-METHORPHAN HB 10 ML UNIT-DOSE CUPS PO PRN (21:26)
[2017-09-09] MEDS: GABAPENTIN 100 MG CAPSULE (FP) PO SCH ×3 (06:07→21:12)
[2017-09-09] MEDS: hydrOXYzine PAMOATE 50 MG CAPSULE (FP) PO PRN ×2 (06:07→21:14)
[2017-09-09] MEDS: busPIRone HCL 10 MG TABLET (FP) PO SCH ×3 (09:37→21:12)
[2017-09-09] MEDS: PRENATAL VITAMINS W/ FOLIC ACID TABLET (FP) PO SCH (09:37)
[2017-09-09] MEDS: NICOTINE 14 MG/24 HOURS TOPICAL PATCH TD SCH (09:38)
--- NOTE | 2017-09-09 10:56 | PN ---
Psychiatric Progress Note Vital Signs: Vital Signs Period Temp Pulse Resp BP Sys/Ruth Pulse Ox Last 24 Hr 97.3 F 56 16-20 128/78 Date of Session: 09/09/17 Chief Complaint:: "anxiety" HPI: Patient is addressing alcohol, nicotine dependence comorbid alcohol induced anxiety. ROS: HTN medically managed. Current Medications: Active Medications Generic Name Dose Route Start Last Admin Trade Name Freq PRN Reason Stop Dose Admin Acamprosate 666 mg 09/09/17 14:00 Campral - PO TID EDILSON Acetaminophen 650 mg 09/04/17 21:55 Tylenol - PO Q4H PRN FEVER OR PAIN Al Hydroxide/Mg Hydroxide 30 ml 09/04/17 21:55 Mylanta Oral Suspension - PO Q6H PRN DYSPEPSIA Buspirone HCl 10 mg 09/09/17 14:00 Buspar - PO TID EDILSON Diphenhydramine HCl 50 mg 09/04/17 21:55 09/05/17 00:36 Benadryl - PO 50 mg HSMR1 PRN Administration FOR ITCHING Eucalyptus/Menthol/Phenol/Sorbitol 1 each 09/04/17 21:55 Cepastat Lozenge - MM Q4H PRN SORE THROAT Gabapentin 100 mg 09/05/17 14:00 09/09/17 06:07 Neurontin - PO 100 mg TID EDILSON Administration Guaifenesin 10 ml 09/04/17 21:55 09/08/17 21:26 Robitussin Dm - PO 10 ml Q6H PRN Administration COUGH Hydroxyzine Pamoate 50 mg 09/04/17 21:55 09/09/17 06:07 Vistaril - PO 50 mg Q4H PRN Administration AGITATION Ibuprofen 400 mg 09/04/17 21:55 09/05/17 00:37 Motrin - PO 400 mg Q6H PRN Administration PAIN Loperamide HCl 4 mg 09/04/17 21:55 Imodium - PO Q6H PRN DIARRHEA Magnesium Hydroxide 30 ml 09/04/17 21:55 Milk Of Magnesia - PO DAILY PRN CONSTIPATION Nicotine 14 mg 09/05/17 10:00 09/09/17 09:38 Nicoderm Patch - TD 14 mg DAILY EDILSON Administration Nicotine Polacrilex 2 mg 09/04/17 21:55 Nicorette Gum - BUC Q2H PRN NICOTINE REPLACEMENT RX Multivit/Folic Acid/Iron 1 tab 09/05/17 10:00 09/09/17 09:37 Vitamins (Sjr) - PO 1 tab DAILY EDILSON Administration Pseudoephedrine/Triprolidine 1 combo 09/04/17 21:55 09/06/17 18:00 Actifed - PO 1 combo TID PRN Administration NASAL CONGESTION Thiamine HCl 100 mg 09/04/17 22:00 09/08/17 21:23 Vitamin B1 - PO 100 mg HS EDILSON Administration Medication(s) Change(s): increase Buspar 10 mg po tid , add Campral 666 mh po tid Current Side Effect: No Lab tests ordered: No Lab tests reviewed: Yes Provider note:: Patient reports has been feeling anxious, he reports that Buspar partially effective, he states he is thinking about alcohol and now he is willing to start Campral, psycheducations regarding campral (side-effects/ benefts ) provided, patient will start medication roday, will continue to monitor rpogress. Total face to face time:: 30 Mental Status Exam - Mental Status Exam Alert and Oriented to: Time, Place, Person Cognitive Function: Good Patient Appearance: Well Groomed Mood: Sad, Anxious Affect: Appropriate, Mood Congruent Patient Behavior: Appropriate, Cooperative Speech Pattern: Clear, Appropriate Voice Loudness: Normal Thought Process: Goal Oriented Thought Disorder: Not Present Hallucinations: Denies Suicidal Ideation: Denies Homicidal Ideation: Denies Insight/Judgement: Fair Sleep: Fair Appetite: Fair Muscle strength/Tone: Normal Gait/Station: Normal Psychiatric Treatment Plan - Problem List (1) Alcohol-induced anxiety disorder Current Visit: No (2) Alcohol-induced sleep disorder Current Visit: No (3) Nicotine dependence Current Visit: No Qualifiers: (4) Alcohol dependence Current Visit: Yes
[2017-09-09] MEDS: ACAMPROSATE CALCIUM 333 MG TABLET.DR PO SCH ×2 (13:04→21:13)
[2017-09-09] MEDS: THIAMINE HCL 100 MG TABLET (FP) PO SCH (21:12)
[2017-09-09] MEDS: SUVOREXANT 10 MG TABLET PO SCH (21:13)
[2017-09-09] MEDS: guaiFENesin/D-METHORPHAN HB 10 ML UNIT-DOSE CUPS PO PRN (21:15)
[2017-09-10] MEDS: busPIRone HCL 10 MG TABLET (FP) PO SCH ×3 (06:09→21:15)
[2017-09-10] MEDS: ACAMPROSATE CALCIUM 333 MG TABLET.DR PO SCH ×3 (06:09→21:15)
[2017-09-10] MEDS: GABAPENTIN 100 MG CAPSULE (FP) PO SCH ×3 (06:09→21:15)
[2017-09-10] MEDS: hydrOXYzine PAMOATE 50 MG CAPSULE (FP) PO PRN ×4 (06:10→21:16)
[2017-09-10] MEDS: PRENATAL VITAMINS W/ FOLIC ACID TABLET (FP) PO SCH (10:12)
[2017-09-10] MEDS: NICOTINE 14 MG/24 HOURS TOPICAL PATCH TD SCH (10:13)
[2017-09-10] MEDS: THIAMINE HCL 100 MG TABLET (FP) PO SCH (21:15)
[2017-09-10] MEDS: SUVOREXANT 10 MG TABLET PO SCH (21:15)
[2017-09-10] MEDS: guaiFENesin/D-METHORPHAN HB 10 ML UNIT-DOSE CUPS PO PRN (21:16)
[2017-09-11] MEDS: ACAMPROSATE CALCIUM 333 MG TABLET.DR PO SCH ×3 (06:06→21:24)
[2017-09-11] MEDS: GABAPENTIN 100 MG CAPSULE (FP) PO SCH ×3 (06:07→21:24)
[2017-09-11] MEDS: busPIRone HCL 10 MG TABLET (FP) PO SCH ×3 (06:07→21:24)
[2017-09-11] MEDS: hydrOXYzine PAMOATE 50 MG CAPSULE (FP) PO PRN ×4 (06:08→21:27)
[2017-09-11] MEDS: NICOTINE 14 MG/24 HOURS TOPICAL PATCH TD SCH (09:43)
[2017-09-11] MEDS: PRENATAL VITAMINS W/ FOLIC ACID TABLET (FP) PO SCH (09:43)
[2017-09-11] MEDS: SUVOREXANT 10 MG TABLET PO SCH (21:24)
[2017-09-11] MEDS: THIAMINE HCL 100 MG TABLET (FP) PO SCH (21:25)
[2017-09-11] MEDS: guaiFENesin/D-METHORPHAN HB 10 ML UNIT-DOSE CUPS PO PRN (21:27)
[2017-09-12] MEDS: ACAMPROSATE CALCIUM 333 MG TABLET.DR PO SCH ×3 (06:03→21:23)
[2017-09-12] MEDS: GABAPENTIN 100 MG CAPSULE (FP) PO SCH ×3 (06:03→21:23)
[2017-09-12] MEDS: busPIRone HCL 10 MG TABLET (FP) PO SCH ×3 (06:03→21:23)
[2017-09-12] MEDS: hydrOXYzine PAMOATE 50 MG CAPSULE (FP) PO PRN ×4 (06:04→21:26)
[2017-09-12] MEDS: NICOTINE 14 MG/24 HOURS TOPICAL PATCH TD SCH (10:14)
[2017-09-12] MEDS: PRENATAL VITAMINS W/ FOLIC ACID TABLET (FP) PO SCH (10:14)
[2017-09-12] MEDS: THIAMINE HCL 100 MG TABLET (FP) PO SCH (21:23)
[2017-09-12] MEDS: SUVOREXANT 10 MG TABLET PO SCH (21:23)
[2017-09-12] MEDS: guaiFENesin/D-METHORPHAN HB 10 ML UNIT-DOSE CUPS PO PRN (21:26)
[2017-09-13] MEDS: GABAPENTIN 100 MG CAPSULE (FP) PO SCH ×3 (06:12→21:16)
[2017-09-13] MEDS: ACAMPROSATE CALCIUM 333 MG TABLET.DR PO SCH ×3 (06:12→21:17)
[2017-09-13] MEDS: busPIRone HCL 10 MG TABLET (FP) PO SCH ×3 (06:12→21:16)
[2017-09-13] MEDS: hydrOXYzine PAMOATE 50 MG CAPSULE (FP) PO PRN ×3 (06:13→21:18)
[2017-09-13] MEDS: guaiFENesin/D-METHORPHAN HB 10 ML UNIT-DOSE CUPS PO PRN ×3 (06:13→21:18)
[2017-09-13] MEDS: PRENATAL VITAMINS W/ FOLIC ACID TABLET (FP) PO SCH (09:51)
[2017-09-13] MEDS: NICOTINE 14 MG/24 HOURS TOPICAL PATCH TD SCH (10:43)
[2017-09-13] MEDS: THIAMINE HCL 100 MG TABLET (FP) PO SCH (21:16)
[2017-09-14] MEDS: hydrOXYzine PAMOATE 50 MG CAPSULE (FP) PO PRN ×4 (06:33→21:18)
[2017-09-14] MEDS: ACAMPROSATE CALCIUM 333 MG TABLET.DR PO SCH ×3 (06:33→21:16)
[2017-09-14] MEDS: GABAPENTIN 100 MG CAPSULE (FP) PO SCH ×3 (06:33→21:16)
[2017-09-14] MEDS: busPIRone HCL 10 MG TABLET (FP) PO SCH ×3 (06:33→21:16)
[2017-09-14] MEDS: guaiFENesin/D-METHORPHAN HB 10 ML UNIT-DOSE CUPS PO PRN ×2 (06:34→21:18)
[2017-09-14] MEDS: NICOTINE 14 MG/24 HOURS TOPICAL PATCH TD SCH (10:15)
[2017-09-14] MEDS: PRENATAL VITAMINS W/ FOLIC ACID TABLET (FP) PO SCH (10:15)
[2017-09-14] MEDS: THIAMINE HCL 100 MG TABLET (FP) PO SCH (21:16)
[2017-09-15] MEDS: GABAPENTIN 100 MG CAPSULE (FP) PO SCH ×3 (06:11→21:15)
[2017-09-15] MEDS: ACAMPROSATE CALCIUM 333 MG TABLET.DR PO SCH ×3 (06:11→21:15)
[2017-09-15] MEDS: busPIRone HCL 10 MG TABLET (FP) PO SCH ×3 (06:12→21:15)
[2017-09-15] MEDS: hydrOXYzine PAMOATE 50 MG CAPSULE (FP) PO PRN ×4 (06:13→21:17)
[2017-09-15] MEDS: NICOTINE 14 MG/24 HOURS TOPICAL PATCH TD SCH (10:06)
[2017-09-15] MEDS: PRENATAL VITAMINS W/ FOLIC ACID TABLET (FP) PO SCH (10:07)
[2017-09-15] MEDS: THIAMINE HCL 100 MG TABLET (FP) PO SCH (21:15)
[2017-09-15] MEDS: guaiFENesin/D-METHORPHAN HB 10 ML UNIT-DOSE CUPS PO PRN (21:17)
[2017-09-16] MEDS: busPIRone HCL 10 MG TABLET (FP) PO SCH ×3 (06:12→21:17)
[2017-09-16] MEDS: ACAMPROSATE CALCIUM 333 MG TABLET.DR PO SCH ×3 (06:12→21:17)
[2017-09-16] MEDS: hydrOXYzine PAMOATE 50 MG CAPSULE (FP) PO PRN ×4 (06:13→21:19)
[2017-09-16] MEDS: GABAPENTIN 100 MG CAPSULE (FP) PO SCH ×3 (06:13→21:17)
[2017-09-16] MEDS: PRENATAL VITAMINS W/ FOLIC ACID TABLET (FP) PO SCH (10:19)
[2017-09-16] MEDS: NICOTINE 14 MG/24 HOURS TOPICAL PATCH TD SCH (10:20)
[2017-09-16] MEDS: THIAMINE HCL 100 MG TABLET (FP) PO SCH (21:18)
[2017-09-16] MEDS: guaiFENesin/D-METHORPHAN HB 10 ML UNIT-DOSE CUPS PO PRN (21:19)
[2017-09-17] MEDS: GABAPENTIN 100 MG CAPSULE (FP) PO SCH ×3 (06:24→21:25)
[2017-09-17] MEDS: hydrOXYzine PAMOATE 50 MG CAPSULE (FP) PO PRN ×4 (06:24→21:27)
[2017-09-17] MEDS: busPIRone HCL 10 MG TABLET (FP) PO SCH ×3 (06:24→21:25)
[2017-09-17] MEDS: ACAMPROSATE CALCIUM 333 MG TABLET.DR PO SCH ×3 (06:24→21:25)
[2017-09-17] MEDS: PRENATAL VITAMINS W/ FOLIC ACID TABLET (FP) PO SCH (10:09)
[2017-09-17] MEDS: NICOTINE 14 MG/24 HOURS TOPICAL PATCH TD SCH (10:10)
[2017-09-17] MEDS: guaiFENesin/D-METHORPHAN HB 10 ML UNIT-DOSE CUPS PO PRN ×2 (14:27→21:27)
[2017-09-17] MEDS: THIAMINE HCL 100 MG TABLET (FP) PO SCH (21:25)
[2017-09-18] MEDS: busPIRone HCL 10 MG TABLET (FP) PO SCH ×3 (06:09→21:20)
[2017-09-18] MEDS: GABAPENTIN 100 MG CAPSULE (FP) PO SCH ×3 (06:09→21:20)
[2017-09-18] MEDS: hydrOXYzine PAMOATE 50 MG CAPSULE (FP) PO PRN ×4 (06:09→21:20)
[2017-09-18] MEDS: ACAMPROSATE CALCIUM 333 MG TABLET.DR PO SCH ×3 (06:09→21:20)
[2017-09-18] MEDS: PRENATAL VITAMINS W/ FOLIC ACID TABLET (FP) PO SCH (10:06)
[2017-09-18] MEDS: NICOTINE 14 MG/24 HOURS TOPICAL PATCH TD SCH (10:06)
--- NOTE | 2017-09-18 13:11 | PN ---
Psychiatric Progress Note Vital Signs: Vital Signs Period Temp Pulse Resp BP Sys/Ruth Pulse Ox Last 24 Hr 97.4 F 68 16-16 142/90 Date of Session: 09/18/17 Chief Complaint:: discharge visit HPI: Patient is addressing alcohol, nicotine dependence comorbid alcohol induced anxiety. ROS: HTN medically managed. Current Medications: Active Medications Generic Name Dose Route Start Last Admin Trade Name Freq PRN Reason Stop Dose Admin Acamprosate 666 mg 09/09/17 14:00 09/18/17 06:09 Campral - PO 666 mg TID EDILSON Administration Acetaminophen 650 mg 09/04/17 21:55 Tylenol - PO Q4H PRN FEVER OR PAIN Al Hydroxide/Mg Hydroxide 30 ml 09/04/17 21:55 Mylanta Oral Suspension - PO Q6H PRN DYSPEPSIA Buspirone HCl 10 mg 09/09/17 14:00 09/18/17 06:09 Buspar - PO 10 mg TID EDILSON Administration Diphenhydramine HCl 50 mg 09/04/17 21:55 09/05/17 00:36 Benadryl - PO 50 mg HSMR1 PRN Administration FOR ITCHING Eucalyptus/Menthol/Phenol/Sorbitol 1 each 09/04/17 21:55 Cepastat Lozenge - MM Q4H PRN SORE THROAT Gabapentin 100 mg 09/05/17 14:00 09/18/17 06:09 Neurontin - PO 100 mg TID EDILSON Administration Guaifenesin 10 ml 09/04/17 21:55 09/17/17 21:27 Robitussin Dm - PO 10 ml Q6H PRN Administration COUGH Hydroxyzine Pamoate 50 mg 09/04/17 21:55 09/18/17 10:06 Vistaril - PO 50 mg Q4H PRN Administration AGITATION Ibuprofen 400 mg 09/04/17 21:55 09/05/17 00:37 Motrin - PO 400 mg Q6H PRN Administration PAIN Loperamide HCl 4 mg 09/04/17 21:55 Imodium - PO Q6H PRN DIARRHEA Magnesium Hydroxide 30 ml 09/04/17 21:55 Milk Of Magnesia - PO DAILY PRN CONSTIPATION Nicotine 14 mg 09/05/17 10:00 09/18/17 10:06 Nicoderm Patch - TD 14 mg DAILY EDILSON Administration Nicotine Polacrilex 2 mg 10/12/17 21:55 Nicorette Gum - BUC Q2H PRN NICOTINE REPLACEMENT RX Multivit/Folic Acid/Iron 1 tab 09/05/17 10:00 09/18/17 10:06 Vitamins (Sjr) - PO 1 tab DAILY EDILSON Administration Pseudoephedrine/Triprolidine 1 combo 09/04/17 21:55 09/06/17 18:00 Actifed - PO 1 combo TID PRN Administration NASAL CONGESTION Thiamine HCl 100 mg 09/04/17 22:00 09/17/17 21:25 Vitamin B1 - PO 100 mg HS EDILSON Administration Current Side Effect: No Lab tests ordered: No Lab tests reviewed: Yes Provider note:: Patient will complete his treatment on 09/19/17 and meet his identified goals, will continue to address his issues at [facility] treatment [facility]. He gained insights into his addiciton, motivated to continue maintain sobriety. He reports that Buspar and Campral being effective, he is less anxious and no craving for drinking, scripts provided for 30 days, patient is stable for discharge on 09/19/17 Total face to face time:: 30 Mental Status Exam - Mental Status Exam Alert and Oriented to: Time, Place, Person Cognitive Function: Good Patient Appearance: Well Groomed Mood: Hopeful Affect: Appropriate, Mood Congruent Patient Behavior: Appropriate, Cooperative Speech Pattern: Clear, Appropriate Voice Loudness: Normal Thought Process: Goal Oriented Thought Disorder: Not Present Hallucinations: Denies Suicidal Ideation: Denies Homicidal Ideation: Denies Insight/Judgement: Fair Sleep: Fair Appetite: Fair Muscle strength/Tone: Normal Gait/Station: Normal Psychiatric Treatment Plan - Problem List (1) Alcohol-induced anxiety disorder Current Visit: No (2) Alcohol-induced sleep disorder Current Visit: No (3) Nicotine dependence Current Visit: No Qualifiers: (4) Alcohol dependence Current Visit: Yes
[2017-09-18] MEDS: THIAMINE HCL 100 MG TABLET (FP) PO SCH (21:19)
[2017-09-18] MEDS: guaiFENesin/D-METHORPHAN HB 10 ML UNIT-DOSE CUPS PO PRN (21:20)
[2017-09-19] MEDS: GABAPENTIN 100 MG CAPSULE (FP) PO SCH (06:11)
[2017-09-19] MEDS: busPIRone HCL 10 MG TABLET (FP) PO SCH (06:11)
[2017-09-19] MEDS: ACAMPROSATE CALCIUM 333 MG TABLET.DR PO SCH (06:11)
[2017-09-19] MEDS: hydrOXYzine PAMOATE 50 MG CAPSULE (FP) PO PRN ×2 (06:12→09:28)
[2017-09-19] MEDS: guaiFENesin/D-METHORPHAN HB 10 ML UNIT-DOSE CUPS PO PRN (06:12)
[2017-09-19 06:46] VITALS: BP 142/77; PULSE 61; TEMP 97.8
[2017-09-19] MEDS: PRENATAL VITAMINS W/ FOLIC ACID TABLET (FP) PO SCH (09:27)
[2017-09-19] MEDS: NICOTINE 14 MG/24 HOURS TOPICAL PATCH TD SCH (09:51)
== END 2017-09-19 09:30 | disposition home or self-care (01) | DRG 772 ==
LOC: YASAS 21:26 → Y5N 22:19
PROVIDERS: ADMIT Psychiatry & Neurology Psychiatry; ATTEND Psychiatry & Neurology Psychiatry
PROC: HZ42ZZZ Group Counseling for Substance Abuse Treatment, Cognitive-Behavioral (ICD-10-PCS; principal; 2017-09-04)
DX: F10.280 Alcohol dependence with alcohol-induced anxiety disorder (principal); F10.282 Alcohol dependence with alcohol-induced sleep disorder; F17.210 Nicotine dependence, cigarettes, uncomplicated; I10 Essential (primary) hypertension
CPT/HCPCS: 36415; 80053; 81003; 93005; 93010